=== PATIENT | male | born 1980 | race Caucasian/White ===

== ENCOUNTER 2017-06-20 10:52 | Inpatient (IN) | payer OTHER ==
[~2017-06-20] VITALS: Ht 177.8 cm; Wt 85.7 kg
[2017-06-20] VITALS (13 sets, daily range): BP systolic 102–134; BP diastolic 62–87
--- NOTE | ~2017-06-20 | HC ---
[facility] [place] [address] CONSULTATION Name: KWADWO THACKER Room #: 237-P ADM IN M.R.#: [id number] Admission: 06/20/17 Attend Phys: Kevin Beach DO Discharge: Date of : 82 Report #: [id number] THIS REPORT FOR: //name// CC: KRYS physician/PCP Kevin Estrada DATE OF SERVICE: 06/21/2017 HISTORY OF PRESENT ILLNESS: This is a 37-year-old male patient who is impulsive and history is difficult to get from him. He indicates he has a pretty significant psychiatric history. He usually followed up with the physicians at [facility]. He indicates that his medications were readjusted about a month ago. He has become better since admission but still appeared to be impulsive, but I do not know what his baseline is. Apparently, he had a severe confusion, which came spontaneously without any trauma and without any aggravating or relieving factor. REVIEW OF SYSTEMS: Indicate that the patient has pretty significant psychiatric problem. It would appear that his medications were readjusted recently. He does not know where the readjustment was. He indicates he does not know what his blood sugar when it happened. I carried out 14-point review of system in this patient. His history is not very clear but except for a pretty significant psychiatric history, he did not come up with any other positive history. PAST MEDICAL HISTORY: Positive for psychiatric problem. FAMILY HISTORY: Negative for any early age epilepsy. SOCIAL HISTORY: He indicates he drinks alcohol very rarely. PHYSICAL EXAMINATION: NEUROLOGICAL: Pretty limited. His examination indicates that this patient is alert, responsive and poorly cooperative but his speech, concentration, fund of knowledge and memory is intact. He knows what month it is. He knows what year it is. His cranial nerve examination 2 through 12 is unremarkable. Strength, sensation, reflexes and tone is symmetrical. There is no cerebellar sign. There is no meningeal sign. I could not look at the patient's fundus. CARDIAC: Examination is unremarkable. LUNGS: He has no respiratory difficulty or rhonchi on either side. SKIN: He has no edema, cyanosis or jaundice. EXTREMITIES: Pulses are palpable. GENERAL: He is a well-developed individual whose hearing and vision looks adequate. NECK: He has no thyroid mass. HEENT: He does not have any dysmorphic features of eyes, ears and face. [address] [address] CONSULTATION Name: THACKERKWADWO Room #: 237-P [facility] IN [facility]#: [id number] Admission: 06/20/17 Attend Phys: Kevin Beach DO Discharge: Date of : 82 Report #: [id number] VITAL SIGNS: His temperature is 97.5. His pulse rate is 99. His blood pressure is 129/80. RADIOLOGICAL DATA: He did have a CT scan of the head and MRI done and they were mostly unremarkable. LABORATORY DATA: His GFR is 95. His B12 is 247. His TSH is normal. IMPRESSION: It is unlikely that there is any neurological etiology for the patient's symptom. I will get an electroencephalogram done, but I will suggest looking for psychiatric and medicine-related etiology. I discussed that aspect with him. RECOMMENDATIONS: 1. EEG. 2. I will suggest a psychiatric evaluation either here or at [facility] where he wants to go. 3. I suggested that if this workup is negative, he should go to an epilepsy specialist and see if they want to do prolonged EEG in this patient. He is not interested in doing that. My main recommendation will be psychiatric evaluation at this stage and that will give us some guidance. Thank you very much for this referral. By: [id number] Hari Kay MD /nt
--- NOTE | ~2017-06-20 | EEG ---
[facility] [place] [address] ELECTROENCEPHALOGRAM Name: KWADWO THACKER Sarah Room #: 237-P [facility] IN M.R.#: [id number] Admission: 06/20/17 Attend Phys: Kevin Beach DO Discharge: 06/22/17 Date of : 82 Report #: [id number] THIS REPORT FOR: //name// CC: KRYS physician/PCP Kevin Estrada DATE OF SERVICE: 06/22/2017 This patient is being evaluated for altered mental status. EEG was done by placing the electrodes by standard 10-20 system of electrode placement. Both referential and sequential montages were used for recording. A lot of eye movement artifact is present. Background activity is about 10-11 Hz and 40 microvolt. This patient became drowsy that is associated with some slowing on both sides. Photic stimulation is unremarkable. Throughout the record, no active epileptiform activity was noticed. IMPRESSION: This patient's electroencephalogram does not show any definite abnormality. By: [id number] Hari Kay MD /nt
--- NOTE | ~2017-06-20 | EKG ---
[address] [place] [address] ELECTROCARDIOGRAM REPORT Name: KWADWO THACKER Room #: 237-P ADM IN M.R.#: [id number] Admission: 06/20/17 Attend Phys: Kevin Beach DO Discharge: Date of : 82 Report #: [id number] THIS REPORT FOR: //name// [facility] ED Test Date: 2017-06-20 Test Time: 19:32:37 Pat Name: KWADWO THACKER Department: Room: Gender: M [employer]: MZOOK : 1980 Requested By: Kwadwo Keller Order Number: [id number] MD: Richard Bunn Measurements Intervals [place] Rate: 83 P: 77 [place]: 149 QRS: 87 QRSD: 98 T: 71 QT: 381 QTc: 448 Interpretive Statements Sinus rhythm No significant abnormality No previous ECG available for comparison Electronically Signed On 06-21-2017 8:11:41 CDT by Richard Bunn [email or web address] <ELECTRONICALLY SIGNED> By: Richard Bunn MD, [facility] 06/21/17 0811 [id number] Richard Bunn MD, FACC /EPI
[2017-06-20 11:06] LABS: ABSOLUTE NEUTROPHILS 6.7 thou/uL (1.4-8.2); BASOPHILS 0.4 % (0.0-2.0); EOSINOPHILS 0.2 % (0.0-3.0); HEMATOCRIT 45.7 % (42.0-52.0); HEMOGLOBIN 15.7 gm/dL (14.0-18.0); LYMPHOCYTES 25.6 % (24.0-44.0); MCH 29.4 pg (26.0-34.0); MCHC 34.4 g/dL (28.0-37.0); MCV 85.3 fL (80.0-100.0); MONOCYTES 7.9 % (1.0-8.0); PLATELET COUNT 233 thou/uL (150-400); POLYS 65.9 % (36.0-66.0); RBC 5.36 mil/uL (4.50-6.00); RDW 14.3 % (10.5-14.5); WBC 10.1 thou/uL (4.0-11.0)
[2017-06-20 11:16] LABS: CALCIUM 9.3 mg/dL (8.5-10.1); POTASSIUM 3.5 mmol/L (3.5-5.1)
[2017-06-20 11:26] LABS: AMP/METHAMP Negative (Negative); BARBITURATES Negative (Negative); BENZODIAZEPINES Negative (Negative); COCAINE Negative (Negative); METHADONE Negative (Negative); OPIATES Negative (Negative); PCP Negative (Negative)
[2017-06-20 18:48] LABS: DIRECT BILIRUBIN 0.2 mg/dL (<0.1-0.3); SGOT 26 U/L (15-37); SGPT 46 U/L (30-65); TOTAL BILIRUBIN 1.2 mg/dL (<0.1-1.0); TOTAL PROTEIN 7.2 g/dL (6.4-8.2); TROPONIN-I < 0.04 ng/mL (<0.06)
[2017-06-20 19:08] LABS: BE(vivo) -1.6 mmol/L (-2 to +3); PCO2 38.7 mmHg (35.0-45.0); PO2 65.3 mmHg (80.0-100.0); pH 7.392 (7.360-7.450); sO2 92.8 % (92.0-98.0)
[2017-06-20 21:12] LABS: URINE BLOOD NEGATIVE (Negative); URINE CLARITY CLEAR; URINE COLOR YELLOW; URINE GLUCOSE-RANDOM* NEGATIVE (Negative); URINE KETONES TRACE (Negative); URINE LEUKOCYTES-REFLEX NEGATIVE (Negative); URINE NITRITE-REFLEX NEGATIVE (Negative); URINE PROTEIN (DIPSTICK) 2+ (Negative); URINE SPECIFIC GRAVITY >= 1.030 (1.005-1.035)
[2017-06-20 21:13] LABS: ICTOTEST (BILI CONFIRMATORY) Negative (Negative); URINE BILIRUBIN NEGATIVE (Negative)
[2017-06-21] VITALS (36 sets, daily range): BP systolic 91–138; BP diastolic 63–99
[2017-06-21 03:28] LABS: HEMATOCRIT 45.6 % (42.0-52.0); HEMOGLOBIN 15.4 gm/dL (14.0-18.0); MCH 29.3 pg (26.0-34.0); MCHC 33.7 g/dL (28.0-37.0); MCV 86.8 fL (80.0-100.0); RBC 5.26 mil/uL (4.50-6.00); RDW 14.1 % (10.5-14.5); WBC 8.9 thou/uL (4.0-11.0)
[2017-06-21 03:40] LABS: ALBUMIN 3.3 g/dL (3.4-5.0); CALCIUM 8.8 mg/dL (8.5-10.1); CREATININE 0.9 mg/dL (0.7-1.3); POTASSIUM 4.1 mmol/L (3.5-5.1); TOTAL PROTEIN 6.3 g/dL (6.4-8.2)
[2017-06-21 08:51] LABS: FOLIC ACID 5.8 ng/mL (8.6-58.9)
[2017-06-22 05:00] VITALS: BP 117/77
[2017-06-22 05:48] LABS: ABSOLUTE NEUTROPHILS 3.3 thou/uL (1.4-8.2); BASOPHILS 0.5 % (0.0-2.0); EOSINOPHILS 0.4 % (0.0-3.0); HEMATOCRIT 43.2 % (42.0-52.0); HEMOGLOBIN 14.6 gm/dL (14.0-18.0); LYMPHOCYTES 51.8 % (24.0-44.0); MCH 29.2 pg (26.0-34.0); MCHC 33.7 g/dL (28.0-37.0); MCV 86.6 fL (80.0-100.0); MONOCYTES 10.5 % (1.0-8.0); PLATELET COUNT 238 thou/uL (150-400); POLYS 36.8 % (36.0-66.0); RBC 4.99 mil/uL (4.50-6.00); RDW 14.1 % (10.5-14.5); WBC 9.1 thou/uL (4.0-11.0)
[2017-06-22 06:04] LABS: CALCIUM 9.5 mg/dL (8.5-10.1); CREATININE 0.9 mg/dL (0.7-1.3); POTASSIUM 4.1 mmol/L (3.5-5.1)
[2017-06-22 07:50] VITALS: BP 136/75
[2017-06-22] MEDS ORDERED: VITAMIN B-12500 MCG PO (15:44)
[2017-06-22] MEDS ORDERED: TYLENOL325 MG PO (15:44)
[2017-06-22] MEDS ORDERED: VOLTAREN GEL 1100 G2 TOP (15:44)
[2017-06-22 16:00] VITALS: BP 136/75
== END 2017-06-22 16:15 | disposition home or self-care (01) | DRG 71 ==
LOC: ER 10:52 → ICU 20:41
PROVIDERS: Emergency Medicine; Family Medicine; Nurse Practitioner Family
PROC: 009U3ZX Drainage of Spinal Canal, Percutaneous Approach, Diagnostic (ICD-10-PCS; principal; 2017-06-21)
DX: G93.40 Encephalopathy, unspecified (principal); E44.1 Mild protein-calorie malnutrition; E11.9 Type 2 diabetes mellitus without complications; F17.210 Nicotine dependence, cigarettes, uncomplicated; F25.9 Schizoaffective disorder, unspecified; Z68.27 Body mass index [BMI] 27.0-27.9, adult; Z79.899 Other long term (current) drug therapy
CPT/HCPCS: 10078